=== PATIENT | male | born 1995 | race Asian ===

== ENCOUNTER 2016-11-06 18:06 | Emergency (ER) | payer OTHER ==
--- NOTE | 2016-11-06 18:14 | PDOC ---
History of Present Illness - General History Source: Patient, Family Exam Limitations: No Limitations <Erick Sawyer - Last Filed: 11/06/16 18:13> - General History Source: Patient Exam Limitations: No Limitations - History of Present Illness Initial Comments: 11/06/16 18:15 The patient is a 20 year old male with a significant past medical history of allergies, who presents to the ED s/p possible seizure. Seizure was witness by the sister. She walked into his room and saw him unconscious and foaming from the mouth. Patient also had a seizure 3 weeks ago. He was schedules to have an MRI tomorrow. Patient denies any trauma. Patient denies fever, chills, nausea, vomiting,diarrhea. Patient has no complaints upon arrival to ED. <Chalino Lebron - Last Filed: 11/06/16 18:24> <Charles Read - Last Filed: 11/07/16 00:16> - General Chief Complaint: Seizure Stated Complaint: POSSIBLE SEIZURE Time Seen by Provider: 11/06/16 18:13 Past History - Psycho/Social/Smoking Cessation Hx Anxiety: No Suicidal Ideation: No Smoking Status: No Smoking History: Never smoked Number of Cigarettes Smoked Daily: 0 <Erick Sawyer - Last Filed: 11/06/16 18:13> <Chalino Lebron - Last Filed: 11/06/16 18:24> <Charles Read - Last Filed: 11/07/16 00:16> - Past Medical History Allergies/Adverse Reactions: Allergies Allergy/AdvReac Type Severity Reaction Status Date / Time No Known Allergies Allergy Verified 11/06/16 18:57 Home Medications: Ambulatory Orders No Home Medications 0 dose .ROUTE UTDICT 10/24/12 Review of Systems - Review of Systems Able to Perform ROS?: Yes Comments:: 11/06/16 18:16 GENERAL/CONSTITUTIONAL: No fever or chills. No weakness. HEAD, EYES, EARS, NOSE AND THROAT: No change in vision. No ear pain or discharge. No sore throat. CARDIOVASCULAR: No chest pain or shortness of breath. RESPIRATORY: No cough, wheezing, or hemoptysis. GASTROINTESTINAL: No nausea, vomiting, diarrhea or constipation. GENITOURINARY: No dysuria, frequency, or change in urination. MUSCULOSKELETAL: No joint or muscle swelling or pain. No neck or back pain. SKIN: No rash NEUROLOGIC: + possible seizure, loss of consciousness, and foaming from the mouth. No headache, vertigo, or change in strength/sensation. ENDOCRINE: No increased thirst. No abnormal weight change. HEMATOLOGIC/LYMPHATIC: No anemia, easy bleeding, or history of blood clots. ALLERGIC/IMMUNOLOGIC: No hives or skin allergy. <Chalino Lebron - Last Filed: 11/06/16 18:24> *Physical Exam - Physical Exam Comments: 11/06/16 18:16 GENERAL: Awake, alert, and fully oriented, in no acute distress HEAD: No signs of trauma EYES: PERRLA, EOMI, sclera anicteric, conjunctiva clear ENT: Auricles normal inspection, hearing grossly normal, nares patent, oropharynx clear without exudates. Moist mucosa NECK: Normal ROM, supple, no lymphadenopathy, JVD, or masses LUNGS: Breath sounds equal, clear to auscultation bilaterally. No wheezes, and no crackles HEART: Regular rate and rhythm, normal S1 and S2, no murmurs, rubs or gallops ABDOMEN: Soft, nontender, normoactive bowel sounds. No guarding, no rebound. No masses EXTREMITIES: Normal range of motion, no edema. No clubbing or cyanosis. No cords, erythema, or tenderness NEUROLOGICAL: Cranial nerves II through XII grossly intact. Normal speech, normal gait SKIN: Warm, Dry, normal turgor, no rashes or lesions noted. <Chalino Lebron - Last Filed: 11/06/16 18:24> - Vital Signs Last Vital Signs Temp Pulse Resp BP Pulse Ox 99.3 F 133 H 18 159/78 96 11/06/16 18:07 11/06/16 18:07 11/06/16 18:07 11/06/16 18:30 11/06/16 18:07 <Charles Read - Last Filed: 11/07/16 00:16> Heart Score/ECG Review - ECG Intrepretation Comment:: 11/06/16 18:24 Sinus tachycardia, 125 bpm. Possible left atrial enlargement. T wave abnormality, consider inferior ischemia. Abnormal ECG. <Chalino Lebron - Last Filed: 11/06/16 18:24> ED Treatment Course - LABORATORY CBC & Chemistry Diagram: 11/06/16 18:16 05/14/17 18:16 - ADDITIONAL ORDERS Additional order review: Laboratory Results 11/06/16 11/06/16 11/06/16 18:30 18:16 18:16 INR Sodium 135 L Potassium 3.8 Chloride 99 Carbon Dioxide 16 L Anion Gap 20 H BUN 16 Creatinine 1.2 Creat Clearance w eGFR > 60 Random Glucose 90 Calcium 8.9 Total Bilirubin 0.5 AST 38 ALT 58 H Alkaline Phosphatase 107 H Creatine Kinase 238 H CK-MB (CK-2) Cancelled CK-MB (CK-2) Rel Index 1.6 Total Protein 8.0 Albumin 4.8 Urine Color Yellow Urine Appearance Clear Urine pH 6.5 Ur Specific [place] 1.015 Urine Protein 1+ H Urine Glucose (UA) Negative Urine Ketones Negative Urine Blood Negative Urine Nitrite Negative Urine Bilirubin Negative Urine Urobilinogen 0.2 e.u/dl Ur Leukocyte Esterase Negative Urine RBC 2-4 Urine WBC 2-4 Ur Epithelial Cells Few Urine Bacteria Few 11/06/16 18:16 INR 1.06 Sodium Potassium Chloride Carbon Dioxide Anion Gap BUN Creatinine Creat Clearance w eGFR Random Glucose Calcium Total Bilirubin AST ALT Alkaline Phosphatase Creatine Kinase CK-MB (CK-2) CK-MB (CK-2) Rel Index Total Protein Albumin Urine Color Urine Appearance Urine pH Ur Specific [place] Urine Protein Urine Glucose (UA) Urine Ketones Urine Blood Urine Nitrite Urine Bilirubin Urine Urobilinogen Ur Leukocyte Esterase Urine RBC Urine WBC Ur Epithelial Cells Urine Bacteria 11/06/16 18:16 RBC 5.92 H MCV 84.6 MCHC 34.6 RDW 11.6 L MPV 8.9 Neutrophils % 42.8 Lymphocytes % 41.9 H Monocytes % 6.9 Eosinophils % 6.0 H Basophils % 2.4 H - Medications Given in the ED: ED Medications Discontinued Medications Generic Name Dose Route Start Last Admin Trade Name Freq PRN Reason Stop Dose Admin Sodium Chloride 1,000 mls @ 1,000 mls/hr 11/06/16 18:22 11/06/16 18:30 Normal Saline - IV 11/06/16 19:21 1,000 mls/hr ASDIR STA Administration Lorazepam 2 mg 11/06/16 18:15 11/06/16 18:27 Ativan Injection - IVPUSH 11/06/16 18:16 2 mg ONCE ONE Administration <Charles Read - Last Filed: 11/07/16 00:16> Medical Decision Making - Medical Decision Making 11/07/16 00:15 received on signout 2nd sz with abnl CT scan (dilated ventricles) [facility] underway--for MRI this week. labs reviewed with pt and family outpt [facility] for anbl LFTs PO hydration for evidence of hemoconcentration and anion gap no heavy machinery/ driving/ dangerous situations fu with [facility] <Charles Read - Last Filed: 11/07/16 00:16> *DC/Admit/Observation/Transfer - Attestations Physician Attestion: 11/06/16 18:14 I, Dr. Erick Sawyer, attest that this document has been prepared under my direction and personally reviewed by me in its entirety. I further attest, that it accurately reflects all work, treatment, procedures and medical decision -making performed by me. <Erick Sawyer - Last Filed: 11/06/16 18:13> - Attestations Scribe Attestion: 11/06/16 18:16 Documentation prepared by Chalino Lebron, acting as medical records specialist for Erick Sawyer MD/DO. <Chalino Lebron - Last Filed: 11/06/16 18:24> <Charles Read - Last Filed: 11/07/16 00:16> Diagnosis at time of Disposition: Seizure - Discharge Dispostion Disposition: HOME Condition at time of disposition: Stable - Patient Instructions Printed Discharge Instructions: Seizure Disorder -- Adult
[2016-11-06] MEDS ORDERED: LORAZEPAM CARPU-JECT 2 MG/ML DISP.SYRIN IVPUSH ONE (18:15)
[2016-11-06 18:16] VITALS: BP 159/78; PULSE 133; TEMP 99.3; BMI 31.1
[2016-11-06] MEDS ORDERED: SODIUM CHLORIDE 1,000 ML IV STA (18:22)
[2016-11-06] MEDS ORDERED: LORAZEPAM CARPU-JECT 2 MG/ML DISP.SYRIN ONE (18:22)
[2016-11-06 18:35] LABS: BASOPHIL 2.4 % (0-2.0); MCH 29.3 pg (25.7-33.7); MCHC 34.6 g/dl (32.0-35.9); MEAN CELL VOLUME 84.6 fl (80-96); MEAN PLT VOLUME 8.9 fl (7.5-11.1); NEUTROPHILS 42.8 % (42.8-82.8); PLATELET COUNT 275 K/MM3 (134-434); RDW 11.6 % (11.9-15.9); WHITE BLOOD COUNT 10.5 K/mm3 (4.0-10.8)
[2016-11-06 18:41] LABS: INR 1.06 (0.82-1.09); PROTHROMBIN TIME (PATIENT) 11.9 SEC (10.2-13.0)
[2016-11-06 18:46] LABS: ALBUMIN 4.8 g/dl (3.5-5.0); ALK PHOS 107 U/L (32-92); ANION GAP 20 (8-16); BILIRUBIN,TOTAL 0.5 mg/dl (0.2-1.0); CALCIUM 8.9 mg/dl (8.4-10.2); CO2 16 mmol/L (22-28); COCKROFT - GAULT 128.07; CPK(DFH) 238 IU/L (38-174); CREATININE 1.2 mg/dl (0.6-1.3); GLUCOSE,RANDOM 90 mg/dl (74-106); SGOT/AST 38 U/L (10-42); SGPT/ALT 58 U/L (10-40)
[2016-11-06 19:22] LABS: PH,URINE 6.5 (4.5-8); URINE APPEARANCE Clear; URINE BILIRUBIN Negative (NEGATIVE); URINE BLOOD Negative (NEGATIVE); URINE GLUCOSE (UA) Negative (NEGATIVE); URINE KETONE Negative (NEGATIVE); URINE LEUK ESTERASE Negative (NEGATIVE); URINE NITRITE Negative (NEGATIVE); URINE UROBILINOGEN 0.2 E.U/dl (0.2-1.0)
[2016-11-06 19:24] LABS: URINE COLOR YELLOW; URINE PROTEIN 1+ (NEGATIVE)
[2016-11-06 19:48] LABS: URINE BACTERIA FEW /hpf (NEGATIVE)
--- NOTE | 2016-11-07 13:03 | EKG ---
Test Reason : Blood Pressure : / mmHG Vent. Rate : 125 BPM Atrial Rate : 125 BPM P-R Int : 152 ms QRS Dur : 092 ms QT Int : 320 ms P-R-T Axes : 065 078 017 degrees QTc Int : 461 ms SINUS TACHYCARDIA POSSIBLE LEFT ATRIAL ENLARGEMENT NONSPECIFIC ST AND T WAVE ABNORMALITY ABNORMAL ECG NO PREVIOUS ECGS AVAILABLE Confirmed by MAI HUI MD ([id number]) on 11/07/2016 1:02:44 PM Referred By: HAMMAD KOWALSKI Confirmed By:MAI HUI MD
== END 2016-11-06 20:28 | disposition home or self-care (01) ==
LOC: FER 18:06
PROC: 3E033NZ Introduction of Analgesics, Hypnotics, Sedatives into Peripheral Vein, Percutaneous Approach (ICD-10-PCS; principal; 2016-11-06)
PROC: 3E0337Z Introduction of Electrolytic and Water Balance Substance into Peripheral Vein, Percutaneous Approach (ICD-10-PCS; 2016-11-06)
DX: R56.9 Unspecified convulsions (principal)
CPT/HCPCS: 36415; 80053; 81003; 81015; 82550; 85025; 85610; 93005; 93010; 99284-25